=== PATIENT | male | born 1960 | race Two or more races ===

== ENCOUNTER 2021-09-17 13:41 | Outpatient (CLI) | payer OTHER | END 2021-09-17 13:53 | disposition home or self-care (01) | LOC: SONOGRAMA 13:41 | PROVIDERS: ATTEND Urology | DX: N40.1 Benign prostatic hyperplasia with lower urinary tract symptoms (principal); N39.0 Urinary tract infection, site not specified ==

== ENCOUNTER 2021-10-01 08:37 | Outpatient (CLI) | payer OTHER | END 2021-10-01 08:40 | disposition home or self-care (01) | LOC: LAB 08:37 | DX: R97.20 Elevated prostate specific antigen [PSA] (principal) ==

== ENCOUNTER → 2021-10-01 | Outpatient (CLI) | payer OTHER | END | disposition home or self-care (01) | LOC: SONOGRAMA 09:34 | PROVIDERS: ATTEND Urology | DX: R97.20 Elevated prostate specific antigen [PSA] (principal) ==

== ENCOUNTER 2023-01-14 09:35 | Outpatient (CLI) | payer OTHER | END 2023-01-14 09:43 | disposition home or self-care (01) | LOC: SONOGRAMA 09:35 | DX: G56.03 Carpal tunnel syndrome, bilateral upper limbs (principal) ==